=== PATIENT | male | born 1980 | race American Indian/Alaskan Native ===

== ENCOUNTER 2020-08-09 13:47 | Emergency (ER) | payer SELFPAY ==
[2020-08-09] MEDS ORDERED: Ertapenem 1 GM in Sodium Chloride 0.9% 50 ML IV ONE (14:08)
--- NOTE | 2020-08-09 14:21 | EDM.PDOC ---
ED HPI GENERAL MEDICAL PROBLEM - General Chief Complaint: Skin Complaint Stated Complaint: INFECTION FOREARM Time Seen by Provider: 08/09/20 13:55 - History of Present Illness INITIAL COMMENTS - FREE TEXT/NARRATIVE: Patient is a 39-year-old man who is here for recheck of the cellulitis with his left wrist. He was seen 2 days ago for this, and placed on oral Keflex. He states that the swelling and pain has gotten worse since then. He cannot think of any injury that elicited this. He has had no fevers or chills, no nausea or vomiting. Left Wrist Pain Score (Numeric/FACES): 8 - Related Data Allergies Allergy/AdvReac Type Severity Reaction Status Date / Time No Known Allergies Allergy Verified 08/09/20 14:12 Home Meds: Home Meds Sulfamethoxazole/Trimethoprim [Bactrim Ds Tablet] 2 each PO BID 10 Days #40 tablet 08/09/20 [Rx] Past Medical History - Past Health History Medical/Surgical History: Denies Medical/Surgical History Social & Family History - Tobacco Use Tobacco Use Status *Q: Never Tobacco User - Recreational Drug Use Recreational Drug Use: No ED ROS GENERAL - Review of Systems Review Of Systems: Comprehensive ROS is negative, except as noted in HPI. ED EXAM, SKIN/RASH Exam: See Below Text/Narrative:: General: Patient is a 39-year-old man in no acute distress Left wrist: He has significant induration and erythema surrounding a 0.5 x 0.5 cm draining wound. There is no other erythema or streaking of his arm. Pulses are equal in his arm. Peripheral IV was started, he was given 1 g of IV ertapenem, secondary to concerns about possible MRSA Course - Vital Signs Last Recorded V/S: Last Vital Signs Temp 97.8 F 08/09/20 14:09 Pulse 80 08/09/20 14:09 Resp 16 08/09/20 14:09 BP 114/82 08/09/20 14:09 Pulse Ox 99 08/09/20 14:09 - Orders/Labs/Meds Labs: Laboratory Tests 08/09/20 Range/Units 14:25 WBC 10.6 H (5.0-10.0) 10^3/uL RBC 5.48 (4.6-6.2) 10^6/uL Hgb 16.0 (14.0-18.0) g/dL Hct 45.9 (40.0-54.0) % MCV 83.8 (80-100) fL MCH 29.2 (27.0-34.0) pg MCHC 34.9 (33.0-35.0) g/dL Plt Count 237 (150-450) 10^3/uL Neut % (Auto) 68.2 (42.2-75.2) % Lymph % (Auto) 20.0 L (20.5-50.1) % [place] % (Auto) 9.8 H (2-8) % Eos % (Auto) 1.7 (1.0-3.0) % Baso % (Auto) 0.3 (0.0-1.0) % Meds: Medications Discontinued Medications Generic Name Dose Route Start Last Admin Trade Name Freq PRN Reason Stop Dose Admin Ertapenem 1 gm/ Sodium 50 mls @ 100 mls/hr 08/09/20 14:08 08/09/20 14:26 Chloride IV 08/09/20 14:37 100 mls/hr ONETIME ONE Administration Departure - Departure Time of Disposition: 15:10 Disposition: Home, Self-Care 01 Clinical Impression: Cellulitis - Discharge Information *PRESCRIPTION DRUG MONITORING PROGRAM REVIEWED*: Not Applicable *COPY OF PRESCRIPTION DRUG MONITORING REPORT IN PATIENT [place]: Not Applicable Prescriptions: Sulfamethoxazole/Trimethoprim [Bactrim Ds Tablet] 2 each PO BID 10 Days #40 tablet Instructions: Cellulitis, Adult Forms: ED Department Discharge Sepsis Event Note (ED) - Evaluation Sepsis Screening Result: No Definite Risk - Problem List & Annotations (1) Cellulitis SNOMED Code(s): 668193043 Code(s): L03.90 - CELLULITIS, UNSPECIFIED Status: Acute Qualifiers: Site of cellulitis: extremity Site of cellulitis of extremity: upper extremity Laterality: left Qualified Code(s): L03.114 - Cellulitis of left upper limb - Problem List Review Problem List Initiated/Reviewed/Updated: Yes - Assessment/Plan Assessment:: 1. Cellulitis of left wrist, with no improvement on oral Keflex Plan: 1. As above, he was given IV ertapenem here in the ED. I will send him home on Bactrim double strength, 2 tablets twice daily for 10 days. He will follow-up immediately in the ER or clinic if this is not improving.
== END 2020-08-09 15:13 | disposition home or self-care (01) ==
LOC: DL.ED 13:47
DX: L03.114 Cellulitis of left upper limb (principal)
CPT/HCPCS: 36415; 85025; 96365; 99283; 99283-25; J1335